=== PATIENT | male | born 1985 | race Caucasian/White ===

== ENCOUNTER 2022-10-09 09:05 | Emergency (ER) | payer BC ==
[~2022-10-09] VITALS: Ht 175.3 cm; Wt 86.2 kg
--- NOTE | 2022-10-09 10:01 | NUR ---
PT left w/o being seen by .
== END 2022-10-09 10:04 | disposition left against medical advice (07) ==
LOC: ER 09:05
DX: Z53.21 Procedure and treatment not carried out due to patient leaving prior to being seen by health care provider (principal)